=== PATIENT | female | born 1975 | race Caucasian/White ===

== ENCOUNTER 2021-08-15 20:18 | Emergency (ER) | payer OTHER ==
[2021-08-15 22:06] LABS: BASOPHIL 1.3 % (0-2); EOSINOPHIL 4.3 % (0-5); HCT 45.5 % (37.0-47.0); HGB 15.5 g/dl (12.5-16.0); LYMPHOCYTE 40.2 % (15-48); MCH 35.1 pg (25.0-31.0); MCHC 34.1 g/dL (32.0-36.0); MCV 102.9 fL (78.0-100.0); MPV 10.2 fL (6.0-9.5); NEUTROPHIL 45.9 % (41-80); NRBC 0; PLT 207 K/uL (150-400); RBC 4.42 M/uL (4.20-5.40); RDW 13.1 % (11.5-14.0); WBC 9.2 K/uL (4.0-10.5)
[2021-08-15 22:26] LABS: ALBUMIN 3.5 g/dL (3.4-5.0); BILIRUBIN - TOTAL 0.4 mg/dL (0.2-1.0); BUN/CREAT RATIO (CALC) 20.5 RATIO; CREATININE 0.44 mg/dL (0.51-0.95); GLOBULIN (CALCULATION) 4.4 g/dL; PHOSPHORUS 4.5 mg/dL (2.6-4.7); POTASSIUM 4.5 mmol/L (3.5-5.1); TOTAL PROTEIN 7.9 g/dL (6.4-8.2)
[2021-08-16 02:48] LABS: AMPHETAMINES NEGATIVE (NEGATIVE); BARBITURATES NEGATIVE (NEGATIVE); ECSTASY (MDMA) NEGATIVE (NEGATIVE); MARIJUANA (THC) NEGATIVE (NEGATIVE); METHADONE NEGATIVE (NEGATIVE); OPIATES NEGATIVE (NEGATIVE); OXYCODONE NEGATIVE (NEGATIVE)
[2021-08-16 07:20] LABS: CLARITY (FLUID) CLEAR; COLOR (FLUID) COLORLESS; WBC (FLUID) 1 WBC/uL
[2021-08-16 07:21] LABS: RBC (FLUID) 0 RBC/uL
[2021-08-16 09:28] LABS: BILIRUBIN NEGATIVE (NEGATIVE); BLOOD NEGATIVE Ery/uL (NEGATIVE); CLARITY CLEAR (CLEAR); COLOR YELLOW (YELLOW); GLUCOSE (U) NORMAL (NORMAL); LEUKOCYTES NEGATIVE Leu/uL (NEGATIVE); NITRITE NEGATIVE (NEGATIVE); PROTEIN NEGATIVE (NEGATIVE); UROBILINOGEN 0.2 mg/dL (0.2-1.0); pH 5.5 (5.0-9.0)
== END 2021-08-16 12:09 | disposition other institution (70) ==
LOC: FER 20:18
PROVIDERS: Emergency Medicine; Emergency Medicine Emergency Medical Services
DX: R53.1 Weakness (principal); F17.200 Nicotine dependence, unspecified, uncomplicated; Z20.822 Contact with and (suspected) exposure to COVID-19
CPT/HCPCS: 36415; 36600; 70450; 70553; 71045; 71275; 72156; 72157; 72158; 80053; 80305; 81003; 82803; 82945; 83735; 84100; 84155; 84484; 85025; 85379; 86140; 87070; 87205; 89051; 93005; 96374; J1100; J2060; U0002